=== PATIENT | female | born 1975 | race Caucasian/White ===

== ENCOUNTER → 2016-10-18 | Outpatient (CLI) | payer BC ==
[~2016-10-18] MED LIST: /CELE20CA; /CELE20CA OR; ABIL1TAB5 PO; ADDE12.5 PO; ADDE25CA PO; ADDE5TAB5 PO; ALBU17IN INH; AMPHETAMINE PO; ATIV1TAB2; BUSP10TA2; BUSPAR PO; CARI350T19 PO; CARI350T20 PO; CELE40TA; CELE40TA OR; CELEXA PO; CLON1TAB PO; CLONPOW23 XX; DEPOPROVERA; DEXTPOW57; ESTR1DIS TD; FLUO20CA8 PO; FLUR15CA2 PO; FLUR30CA12 PO; FLUT44IN INH; GABA300C3 PO; HALO5TA PO; LATU20TA PO; LATU40TA PO; LITH300C PO; MELO15TA3 PO; MELO15TA4 PO; MORP15TA2 PO; MS C15TA2 PO; MS C15TA5; MS C15TA5 OR; MS C15TA5 PO; MULT1TAB8 PO; NEUR400C PO; PRIL20CA9 PO; PROZ40CA PO; Proventil INH; SERO1TAB PO; SERO400T OR; SERO400T3; SOMA350T; SOMA350T PO; SYMB16INH INH; SYMB80INH INH; TRAZO50TA PO; TYLE325T5 PO; VENTAER; [UNRECOGNIZED DRUG - CODE] TD; bengay cream TOP
== END ==
LOC: M OUTALCOH 08:04
PROVIDERS: ATTEND Psychiatry & Neurology Psychiatry
DX: F18.20 Inhalant dependence, uncomplicated (principal); F15.20 Other stimulant dependence, uncomplicated

== ENCOUNTER 2016-11-03 10:00 | Outpatient (RCR) | payer BC | END 2016-11-10 | LOC: M OUTALCOH 10:00 | PROVIDERS: ATTEND Psychiatry & Neurology Psychiatry | DX: F18.20 Inhalant dependence, uncomplicated (principal); F15.20 Other stimulant dependence, uncomplicated; F17.200 Nicotine dependence, unspecified, uncomplicated ==